=== PATIENT | male | born 1985 | race Caucasian/White ===

== ENCOUNTER 2020-08-17 10:20 | Emergency (ER) | payer OTHER, BC, SELFPAY ==
--- NOTE | ~2020-08-17 | CT_ITS ---
EXAMINATION: CT LUMBAR SPINE WITHOUT CONTRAST CLINICAL INFORMATION: Low back pain. COMPARISON: Lumbar spine radiographs 08/17/2020. TECHNIQUE: Director Of Learning images were obtained. CT acquisition of the lumbar spine was performed without contrast. Data was reformatted into multiplanar images at the acquisition workstation. This CT examination was performed using dose optimization techniques as appropriate, variously including the following: *Automated exposure control *Adjustment of mA and/or kV according to patient size (this includes techniques or standardized protocols for targeted exams where dose is matched to indication/reason for exam; i.e. extremities or head) *Use of iterative reconstruction technique DLP; 723 mGy-cm FINDINGS: There are nondisplaced bilateral L5 pars interarticularis defects. Slight grade 1 retrolisthesis of L4 on L5. Alignment is otherwise normal. Vertebral heights are preserved. No acute fracture. There is slight loss of intervertebral disc height at L5-S1. There is a slightly bulging disc at L5-S1. Annular contours are otherwise normal. Grossly no evidence of canal or neuroforaminal compromise. Limited visualization the abdominal anatomy reveals a 1.4 cm calculus within the gallbladder lumen. Psoas and paraspinal muscle groups are symmetric. CT/CT lumbar spine wo con IMPRESSION: There are nondisplaced bilateral L5 pars interarticularis defects and a slightly bulging disc at L5-S1. Otherwise unremarkable examination. Specifically no canal or neuroforaminal compromise. Limited visualization of the abdominal anatomy reveals a 1.4 cm calculus within the gallbladder.
--- NOTE | ~2020-08-17 | XR_ITS ---
EXAMINATION: XR LUMBOSACRAL SPINE CLINICAL INFORMATION: Low back pain COMPARISON: Outside radiographs lumbar spine 08/16/2020 ([place], [place] lumbar the [place]rer from yesterday. There is). TECHNIQUE: Three views of the lumbosacral spine. FINDINGS: There is normal lumbar segmentation with 5 nonrib-bearing lumbar vertebrae of normal height and normal lumbar lordosis. There is no lumbar vertebral compression, spondylolisthesis, disc narrowing, destructive process. There is likely L5 spondylolysis. The SI joints and visualized sacrum are unremarkable. Subtle ringlike density right upper quadrant may suggest gallstone, better appreciated on the outside exam 08/16/2020. XR/XR lumbar spine 2-3V IMPRESSION: 1. No lumbar vertebral compression, disc narrowing, destructive process. 2. Probable L5 spondylolysis. This could be further assessed with oblique views. 3. Question gallstone.
[2020-08-17 10:29] VITALS: BP 128/75; PULSE 68; RESP 6; TEMP 36.9; O2SAT 96; BMI 36.9
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
[2020-08-17 13:35] VITALS: BP 118/76; PULSE 71; RESP 16; TEMP 36.8; O2SAT 98
[2020-08-17] MEDS: predniSONE 20 MG TABLET 60 MG PO (13:45)
== END 2020-08-17 13:50 | disposition home or self-care (01) ==
PROVIDERS: Emergency Provider Emergency Medicine; PCP Internal Medicine
DX: Z04.1 Encounter for examination and observation following transport accident (principal); M54.16 Radiculopathy, lumbar region; M54.41 Lumbago with sciatica, right side
CPT/HCPCS: 72100; 72131; 99284

== ENCOUNTER 2023-04-17 15:25 | Outpatient (AMB) | payer BC, SELFPAY ==
[2023-04-17 15:38] VITALS: BP 138/88; PULSE 79; O2SAT 97; BMI 38.0
--- NOTE | 2023-04-17 15:38 | MHC.PC.OV ---
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/No Diagnosis Allergies pollen extracts Allergy (Verified 04/17/23 15:42) Itchy Eyes Medication List - Last Reconciled 04/17/23 by NARGIS Palomares bupropion HCl 300 mg PO DAILY sertraline 150 mg PO Tobacco use date assessed: 04/17/23 Dental Screening Dental Screen Date: 04/17/23 Did you have a dental visit in the last 12 months?: No Did you have a dental problem in the last 6 months where you did not have access to dental care?: No Was dental information given to patient?: No HPI HPI Comments History of Present Illness Details Patient is a 37-year-old male here to establish care and to have his annual physical exam. Will obtain medical records from his previous provider, he has not been seen by a provider in a couple of years. He has a past medical history significant for lower back pain, but states he is not having any issues with that right now. 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 He has agreed to send his medical records from his previous provider. Patient has a chief complaint today of gastric reflux, gas, and occasional abdominal distension. Patient states that he notices the symptoms most before bed. States that the discomfort is mostly on the left side of his abdomen. Also states that he has instances of loose stools. Patient has tried Pepto-Bismol which has given some relief. Denies blood in stools, black tarry stools, nausea, vomiting, diarrhea, chest pain, dizziness, numbness. [facility] Medical History (Updated 04/17/23 @ 16:18 by NARGIS Palomares) Lower back pain Depression Anxiety Social History Housing: Condominium Comment: Recovering ETOH abuse Patient Tobacco Use Status: Former Tobacco user e-Cigarette/Vaping Use: Never Used service: No Current occupational status: employed Cognitive needs: No Hearing needs: No Vision needs: No Questionnaire PHQ-9 Over the last 2 weeks, how often have you been bothered by any of the following problems? 1. Little interest or pleasure in doing things: several days 2. Feeling down, depressed, or hopeless: several days 3. Trouble falling or staying asleep, or sleeping too much: several days 4. Feeling tired or having little energy: several days 5. Poor appetite or overeating: several days 6. Feeling bad about yourself - or that you are a failure or have let yourself or your family down: several days 7. Trouble concentrating on things, such as reading the newspaper or watching television: several days 8. Moving or speaking so slowly that other people could have noticed. Or the opposite - being so fidgety or restless that you have been moving around a lot more than usual: not at all 9. Thoughts that you would be better off or of hurting yourself in some way: several days Total score: 8 Depression Screening Interpretation: Negative Depression Screening Done: Yes 65184 - PHQ-9 Billing: Yes Source: Developed by Drs. Bladimir Valentino, Georgia Weiner, Dae Gomez and colleagues, with an educational desire from [email or web address]. Thrive Questionnaire Date Thrive assessed: 04/17/23 I am a: Patient What is your living situation today?: I have a steady place to live Within the past 12 months, did the food you bought not last and you didn't have the money to get more?: Never true Within the past 12 months, did you worry whether your food would run out before you got money to buy more?: Never true Do you have trouble paying for medicines?: No Do you have trouble getting transportation to medical appointments?: No Do you have trouble paying your heating and electricity bill?: No Do you have trouble taking care of your child, family member or friend?: No Do you have trouble with day-to-day activities such as bathing, preparing meals, shopping, managing finances, etc.?: No Are you currently unemployed and looking for a job?: No Are you interested in more education?: No Please select the resources that you would like help with: None Currently or been in a relationship where the following occur: no concerns reported AUDIT C Alcohol Use Questionnaire (AUDIT-C) 1. How often do you have a drink containing alcohol?: Never 3. How often do you have six or more drinks on one occasion?: Never Total Score: 0 Score Reviewed/Action Taken: Yes INDIRA-7 AMB Questionnaire INDIRA-7 Date INDIRA - 7 assessed: 04/17/23 Feeling nervous, anxious, or on edge: 0 = Not at all Not being able to stop or control worryin = Several days Worrying too much about different things: 1 = Several days Trouble relaxin = Not at all Being so restless that it is hard to sit still: 0 = Not at all Becoming easily annoyed or irritable: 2 = More than half the days Feeling afraid as if something awful might happen: 0 = Not at all Total INDIRA-7 score (0-4 normal; 5-9 mild; 10-14 moderate; 15-21 severe): 4 Source: Developed by Drs. Bladimir Valentino, Georgia Weiner, Dae Gomez and colleagues, with an educational desire from [email or web address]. INDIRA-7 Assessment Billing INDIRA-7 Assessment Tool: INDIRA-7 Assessment 37813 Review of Systems Const Details: Constitutional : No Weight loss, No Fever, No Chills, No Fatigue, No Malaise ENT/Mouth : No sore throat, No Rhinorrhea Eyes: No Eye Pain, No Swelling, No Redness Cardiovascular : No Chest Pain, No SOB, No Dyspnea on Exertion, No Orthopnea, No Edema, No Palpitations Respiratory : No Cough, No Sputum, No Wheezing Gastrointestinal : No Nausea, No Vomiting, No Diarrhea, No Constipation, No abdominal Pain, No Hematochezia, No Melena. Admits Gas, loose stool, and reflux. Genitourinary : No Dysuria, No Urinary Frequency, No Hematuria, Musculoskeletal : No joint pain, No Myalgias, No Joint Swelling Skin : No Skin Lesions, No rash Neuro : No Weakness, No Numbness, No Dizziness, No Headache Psych : No Anxiety/Panic, No Depression Heme/Lymph: No Bruising, No Bleeding,No Lymphadenopathy Endocrine : No Polyuria, No Polydipsia All other systems reviewed and are negative Physical exam (Primary Care) Vital Signs: Last Vital Signs Pulse 79 04/17/23 15:38 BP 138/88 04/17/23 15:38 Pulse Ox 97 04/17/23 15:38 Oxygen Delivery Method Room Air 04/17/23 15:38 Care Plan Goal for BP management: Vital signs have been reviewed and are stable. BMI result Body Mass Index 38.0 BMI Assessment/Plan discussion: High Tobacco/Smoking Status: Tobacco use Status Tobacco use date assessed 04/17/23 04/17/23 15:40 Patient Tobacco Use Status Former Tobacco user 04/17/23 15:49 e-Cigarette/Vaping Use Never Used 04/17/23 15:47 PHQ-9: PHQ-9 Score PHQ-9: Total score 11 04/17/23 16:14 Depression Screening Interpretation: Negative Thrive Assessment: Date of Thrive Assessment Date Thrive assessed 04/17/23 04/17/23 16:14 Currently or been in a relationship where the following occur: no concerns reported Const Other: Appearance: Alert.? Oriented X3.? No acute distress.? Head: Normocephalic, atraumatic, no step-offs or deformities Eyes: Pupils equal, round and reactive to light.? ENT: Pharynx normal.?TM intact and pearly partida. Neck: Normal inspection.? Neck supple.?Full ROM CVS: Normal heart rate and rhythm.? Pulses normal.? Respiratory: No respiratory distress.? Breath sounds normal.? Abdomen: Soft and nontender.? Skin: Skin warm and dry.? Normal skin color.? Normal skin turgor.? Extremities: No lower extremity edema.? No calf ttp. 5/5 strength to bilateral upper and lower extremities Back: No midline tenderness, no C-spine tenderness, full range of motion, no CVA tenderness bilaterally Neuro: Oriented X 3.? No motor deficit.? No sensory deficit. CN 2-12 intact Results Reviewed Results Reviewed: Will call patient with lab results. Assessment and Plan Assessment & Plan (1) GERD (gastroesophageal reflux disease): Comment: Will prescribe omeprazole 20 mg to be taken the morning for the next 4 weeks. Patient has been instructed to take the medication even if symptoms resides. He has been educated on side effects of these medications. He has been educated on signs of worsening symptoms and when to return to the office or when to present to the emergency room. He has been educated on foods to avoid. In to avoid eating at least 3 hours before bedtime. Code(s): K21.9 - Gastro-esophageal reflux disease without esophagitis Qualifiers: Esophagitis presence: esophagitis presence not specified Qualified Code(s): K21.9 - Gastro-esophageal reflux disease without esophagitis Plan: Patient will follow-up in 3 months. Plan Take your medications as prescribed. If you were prescribed antibiotics today, it is important that you take your medication to their entirety, do not skip any doses, do not finish them early. Follow-up with your primary care provider this week. Return to the emergency department with new or worsening symptoms. Such as fevers, chills, chest pain, shortness of breath, nausea, vomiting, dizziness, headache, vision changes, lethargy In case of emergency call 911 Orders: Orders Comprehensive Met. Panel 04/17/23 Z91.89 - Other specified personal risk factors, not elsewhere classified Vitamin D 25-OH (D2 and D3) 04/17/23 Z13.21 - Encounter for screening for nutritional disorder UA CC w/rflx Micro + Cult 04/17/23 E86.0 - Dehydration Complete Blood Count Auto Diff 04/17/23 Z13.0 - Encounter for screening for diseases of the blood and blood-forming organs and certain disorders involving the immune mechanism Lipid Panel 04/17/23 E78.5 - Hyperlipidemia, unspecified Vitamin B6 04/17/23 Z13.21 - Encounter for screening for nutritional disorder Vitamin B12 04/17/23 Z13.21 - Encounter for screening for nutritional disorder TSH reflex Free T4 04/17/23 E03.9 - Hypothyroidism, unspecified Medications: New omeprazole 20 mg PO DAILY 30 caps 0RF Coding Level of Care Code New Pt Level 4 (08746) Diagnoses Gastroesophageal reflux disease, unspecified whether esophagitis present K21.9 Esophagitis presence: esophagitis presence not specified Additional Codes INDIRA-7 Assessment Billing - INDIRA-7 Assessment Tool: INDIRA-7 Assessment 07326 ([id number]) Time Spent (min) 45
== END 2023-04-17 16:12 | disposition home or self-care (01) ==
PROVIDERS: Visit Provider Nurse Practitioner Primary Care
DX: K21.9 Gastro-esophageal reflux disease without esophagitis (principal)
CPT/HCPCS: 99204

== ENCOUNTER 2023-05-05 08:03 | Outpatient (AMB) | payer BC, SELFPAY ==
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
--- NOTE | 2023-05-05 08:09 | AM.OFFWIN_ITS ---
Intake Vital Signs 05/05/23 08:16 Height 5 ft 11 in Weight 272 lb BMI 37.9 BP 128/74 Blood Pressure Location Lt brachial Position Sitting Pulse 86 Pulse Source Pulse Oximeter Temp 98.0 F Temp Source Oral Pulse Oximetry (%) 98 Intake Visit Reasons: EP LT eye (Scratch) Lobby Intake Note: pt is here for c.o left eye scratch on friday evening vision screening right eye 20/15 left eye 20/25 both eyes 20/25 Patient Tobacco Use Status: Former Tobacco user Allergies pollen extracts Allergy (Verified 05/05/23 08:17) Itchy Eyes Do you need a note to return to daycare/school/sports/work: Yes HPI HPI Comments History of Present Illness Details Nader presents to walk-in today for complaints foreign body sensation to the left eye. States he was outside on Friday and felt like something got his eye. He then rubbed the eye several times and noted afterwards discomfort and continued feeling of foreign body sensation. Has been using [id number] artificial tears. Denies pain with extraocular movements, changes in vision, headaches or purulent discharge He reports symptoms were approximately 80% worse yesterday and today is feeling a little better but he wanted to be evaluated. Patient drives for work and is requesting work note. [facility] Medical History (Updated 05/05/23 @ 08:55 by Sofiya Monge APRN, PRE SCHOOL MANAGER) Lower back pain Depression Anxiety Social History Housing: Condominium Comment: Recovering ETOH abuse Patient Tobacco Use Status: Former Tobacco user e-Cigarette/Vaping Use: Never Used service: No Current occupational status: employed Cognitive needs: No Hearing needs: No Vision needs: No Review of Systems Const All systems reviewed & are unremarkable except as noted in HPI and below Physical Exam Vital Signs: Last Vital Signs Temp 98.0 F 05/05/23 08:16 Pulse 86 05/05/23 08:16 BP 128/74 05/05/23 08:16 Pulse Ox 98 05/05/23 08:16 BMI result Body Mass Index 37.9 General: awake, alert, oriented. Answers questions appropriately. Fully engaged in examination. Skin: warm, dry, intact HEENT: Normocephalic. Hearing intact. left eye: + conjunctival injection. EOM intact Cardiac: External chest normal in appearance. Respiratory: No cough, audible wheezing or stridor. Abdomen: without gross distension. MS: No obvious swelling or deformities. Neurological: Oriented to person, place, time and situation. Thought process intact. Psychiatric: Appropriate mood and affect. Good judgment and insight. Office Procedures Fluorescein eye exam Details: No foreign body or corneal abrasion visualized Assessment & Plan Assessment & Plan (1) Foreign body sensation, left eye: Code(s): H57.8A2 - Foreign body sensation, left eye Plan Patient presents to the [facility] for left eye foreign body sensation Notable for conjunctival injection left eye, no foreign body or corneal abrasion visualized ABX drops, 1 drop to both eyes four times daily. Avoid touching, rubbing the eyes. Do not use same area of facecloth to clean both eyes. Wash hands often. All questions and concerns were answered during the visit. Patient agrees with the plan. Follow up with pcp or return to [facility] for any new or worsening symptoms. Orders: Orders AMB Fluorescein eye exam Today H57.8A2 - Foreign body sensation, left eye Medications: New polymyxin B sulf-trimethoprim 10,000 unit- 1 mg/mL while awake; do not exceed 6 doses in 24 hours 1 drp ophthalmic (eye) QID 5 days 10 mL 0RF Coding Level of Care Code Est Pt Level 4 (81680) Diagnoses Foreign body sensation, left eye H57.8A2
[2023-05-05 08:16] VITALS: BP 128/74; PULSE 86; TEMP 36.7; O2SAT 98; BMI 37.9
== END 2023-05-05 08:40 | disposition home or self-care (01) ==
PROVIDERS: PCP Nurse Practitioner Primary Care; Visit Provider Registered Nurse Emergency
DX: H57.8A2 Foreign body sensation, left eye (principal)
CPT/HCPCS: 99213

== ENCOUNTER 2023-06-09 09:03 | Outpatient (REF) | payer BC, SELFPAY ==
[2023-06-09 11:09] LABS: MANUAL DIFF FLAG NO
[2023-06-09 11:26] LABS: Basophils Percent Auto 0.3 % (0-2); Eosinophils Absolute Auto 0.2 X10*3/uL (0.0-0.4); Eosinophils Percent Auto 2.3 % (0-4); Hematocrit 44.6 % (42.0-52.0); Imm Gran Abs Auto 0.06 X10*3/uL (0.00-0.03); Imm Gran Pct Auto 0.7 % (0.0-0.4); Lymphocytes Absolute Auto 2.7 X10*3/uL (1.2-4.9); Lymphocytes Percent Auto 30.7 % (20-40); Mean Corpuscular HGB Conc 33.6 g/dl (31.0-36.0); Mean Corpuscular Hemoglobin 29.6 pg (27.0-33.0); Mean Corpuscular Volume 88.1 fL (80.0-98.0); Monocytes Absolute Auto 0.6 X10*3/uL (0.1-1.2); Monocytes Percent Auto 7.1 % (2-11); Neutrophils Absolute Auto 5.2 x10*3/uL (2.0-8.3); Neutrophils Percent Auto 58.9 % (45-73); Platelet Count 247 X10*3/uL (160-400); Red Blood Count 5.06 X10*6/uL (4.60-5.80); Red Cell Distribution Width 12.9 % (11.0-16.0); White Blood Count 8.8 X10*3/uL (4.8-10.8)
[2023-06-09 11:35] LABS: Appearance Urine Clear; Color Urine Yellow; Glucose Urine UA Negative (Negative); Leukocyte Esterase Urine Negative (Negative); Nitrite Urine Negative (Negative); Urine Blood Negative (Negative); Urine Ketones Negative (Negative); Urine Protein Negative (Neg-Trace)
[2023-06-09 12:26] LABS: Alanine Aminotransferase 48 U/L (0-40); Albumin Level 4.4 g/dL (3.5-5.0); Alkaline Phosphatase 71 U/L (39-117); Anion Gap 10 (12-20); Aspartate Amino Transferase 30 U/L (5-37); Bilirubin Total 0.4 mg/dL (0.0-1.0); Blood Urea Nitrogen 11 mg/dL (9-16); Calcium 9.6 mg/dL (8.4-10.2); Carbon Dioxide 27 mmol/L (22-29); Chloride 107 mmol/L (96-108); Cholesterol 208 mg/dL (<200); Estimated Glomerular Filt Rate > 60; Glucose Random 79 mg/dL (60-115); HDL Cholesterol 52 mg/dL (>40); LDL Cholesterol Calculated 145 mg/dL (<100); Potassium 4.3 mmol/L (3.3-5.1); Sodium 140 mmol/L (135-145); Total Protein 7.1 g/dL (6.5-8.0); Triglycerides 55 mg/dL (<150)
[2023-06-09 12:42] LABS: TSH reflex Free T4 0.54 uIU/mL (0.32-4.0)
[2023-06-09 12:48] LABS: Vitamin B12 874 pg/mL (200-900)
[2023-06-13 13:49] LABS: Vitamin B6 17.7 ng/mL (2.1-21.7)
[2023-06-13 15:24] LABS: Vitamin D 25-OH, D2 <4 ng/mL; Vitamin D 25-OH, D3 28 ng/mL; Vitamin D 25-OH, Total 28 ng/mL (30-100)
== END 2023-06-09 09:04 | disposition home or self-care (01) ==
LOC: HO.HMGCLDS 09:03
PROVIDERS: PCP Nurse Practitioner Primary Care; Visit Provider Nurse Practitioner Primary Care
DX: Z13.0 Encounter for screening for diseases of the blood and blood-forming organs and certain disorders involving the immune mechanism (principal); Z13.21 Encounter for screening for nutritional disorder; Z91.89 Other specified personal risk factors, not elsewhere classified; E03.9 Hypothyroidism, unspecified; E86.0 Dehydration; E78.5 Hyperlipidemia, unspecified
CPT/HCPCS: 36415; 80053; 80061; 81003; 82306; 82607; 84207; 84443; 85025

== ENCOUNTER 2023-07-17 15:14 | Outpatient (AMB) | payer BC, SELFPAY ==
--- NOTE | 2023-07-17 15:26 | A.OFFPC_ITS ---
Vital Signs 07/17/23 15:27 Height 5 ft 11 in Weight 269 lb 9 oz BMI 37.6 BP 126/84 Blood Pressure Location Rt brachial Position Sitting Pulse 77 Pulse Source Pulse Oximeter Pulse Oximetry (%) 99 Oxygen Delivery Method Room Air Intake Visit Reasons: 3 Month f/u Intake Note: Pt is here to follow up for his lab results Allergies pollen extracts Allergy (Verified 07/17/23 15:43) Itchy Eyes Medication List - Last Reconciled 07/17/23 by NARGIS Palomares multivitamin (Daily Multi-Vitamin tablet) 1 tab PO DAILY sertraline 150 mg PO Tobacco use date assessed: 07/17/23 Dental Screening Dental Screen Date: 07/17/23 Did you have a dental visit in the last 12 months?: No Did you have a dental problem in the last 6 months where you did not have access to dental care?: No Was dental information given to patient?: No HPI HPI Comments History of Present Illness Details Patient is a 38-year-old male in to discuss labs and have a follow-up with his GERD. Patient had been utilizing omeprazole with mild/moderate effect. He states that he had been under a significant amount of life stress, which has since improved, and believes that was contributing to his gastric reflux symptoms. He states that he has also altered his diet which has improved his GERD symptoms, though they have not completely diminished. Patient would like to continue with diet and exercise to see if he is able to eliminate reflux without medication. We also discussed patient's labs including low vitamin D3, and hyperlipidemia. Based on 10 year ASCVD patient is not indicated for statin therapy at this time. Patient believes he can improve with diet and exercise. [facility] Medical History (Updated 07/17/23 @ 16:16 by NARGIS Palomares) Lower back pain Depression Anxiety Social History Housing: Condominium Comment: Recovering ETOH abuse Patient Tobacco Use Status: Former Tobacco user e-Cigarette/Vaping Use: Never Used service: No Current occupational status: employed Cognitive needs: No Hearing needs: No Vision needs: No Questionnaire PHQ-9 Over the last 2 weeks, how often have you been bothered by any of the following problems? 39018 - PHQ-9 Billing: Patient declined-do not bill Source: Developed by Drs. Bladimir Valentino, Georgia Weiner, Dae Gomez and colleagues, with an educational desire from [employer]. Thrive Questionnaire Date Thrive assessed: 04/17/23 INDIRA-7 AMB Questionnaire INDIRA-7 Date INDIRA - 7 assessed: 04/17/23 Source: Developed by Drs. Bladimir Valentino, Georgia Weiner, Dae Gomez and colleagues, with an educational desire from [employer]. INDIRA-7 Assessment Billing INDIRA-7 Assessment Tool: INDIRA-7 Assessment 43542 Review of Systems Const Details: Constitutional : No Weight loss, No Fever, No Chills, No Fatigue, No Malaise ENT/Mouth : No sore throat, No Rhinorrhea Eyes: No Eye Pain, No Swelling, No Redness Cardiovascular : No Chest Pain, No SOB, No Dyspnea on Exertion, No Orthopnea, No Edema, No Palpitations Respiratory : No Cough, No Sputum, No Wheezing Gastrointestinal : No Nausea, No Vomiting, No Diarrhea, No Constipation, No abdominal Pain, No Hematochezia, No Melena, Admits minimal reflux. Genitourinary : No Dysuria, No Urinary Frequency, No Hematuria, Musculoskeletal : No joint pain, No Myalgias, No Joint Swelling Skin : No Skin Lesions, No rash Neuro : No Weakness, No Numbness, No Dizziness, No Headache Psych : No Anxiety/Panic, No Depression All other systems reviewed and are negative Physical exam (Primary Care) Vital Signs: Last Vital Signs Pulse 77 07/17/23 15:27 BP 126/84 07/17/23 15:27 Pulse Ox 99 07/17/23 15:27 Oxygen Delivery Method Room Air 07/17/23 15:27 Care Plan Goal for BP management: Vital signs reviewed stable BMI result Body Mass Index 37.6 Tobacco/Smoking Status: Tobacco use Status Tobacco use date assessed 07/17/23 07/17/23 15:34 Patient Tobacco Use Status Former Tobacco user 07/17/23 15:27 e-Cigarette/Vaping Use Never Used 07/17/23 15:27 Thrive Assessment: Date of Thrive Assessment Date Thrive assessed 04/17/23 07/17/23 15:27 Const General: cooperative and no acute distress Nutritional Appearance: overweight Limitations: no limitations Chest Chest palpation & inspection: normal inspection of the chest Resp Auscultation: clear to auscultation bilaterally Cardio Rate: regular rate Rhythm: regular rhythm Heart sounds: S1 normal heart sound present and S2 normal heart sound present GI Inspection: Yes normal to inspection Percussion: Yes normal to percussion Auscultation: normal bowel sounds Results Reviewed Results Reviewed: Sodium 140 135-145 mmol/L Potassium 4.3 3.3-5.1 mmol/L CL 107 96-108 mmol/L CO2 27 22-29 mmol/L Gap 10 L 12-20 BUN 11 9-16 mg/dL Creat 0.99 0.5-1.4 mg/dL EGFR > 60 NOTE: For -[place]ian individuals, multiply the result by 1.210. Chronic Kidney Disease: Estimated GFR < 60 mL/min/1.73m2 Severe Kidney Disease: Estimated GFR < 15 mL/min/1.73m2 Glucose, Random 79 60-115 mg/dL CA 9.6 8.4-10.2 mg/dL Total Bili 0.4 0.0-1.0 mg/dL AST (GOT) 30 5-37 U/L ALT (GPT) 48 H 0-40 U/L Protein, Total 7.1 6.5-8.0 g/dL Alb 4.4 3.5-5.0 g/dL Triglyceride 55 <150 mg/dL Desirable Triglyceride: less than 150 mg/dL Borderline High Triglyceride 150-199 mg/dL High Triglyceride: 200-499 mg/dL Very High Triglyceride: greater than or equal to 5OO mg/dL Cholesterol 208 H <200 mg/dL Desirable Cholesterol: less than 200 mg/dL Borderline High Cholesterol: 200-239 mg/dL High Cholesterol: greater than 239 mg/dL LDL Calculated 145 H <100 mg/dL Desirable LDL: less than 100 mg/dL Near Optimal/Above Optimal LDL: 110-129 mg/dL Borderline High LDL: 130-159 mg/dL High LDL: 160-189 mg/dL Very High LDL: greater than or equal to 190 mg/dL HDL 52 >40 mg/dL Desirable HDL: greater than 40 mg/dL Note: This HDL assay may give artificially low results in patients with liver disease. Alk Phos 71 39-117 U/L TSH 0.54 0.32-4.0 uIU/mL Assessment and Plan Assessment & Plan (1) GERD (gastroesophageal reflux disease): Comment: Patient will continue to avoid food 3 hours prior to bedtime. Continue to sleep with has the bed elevated. No longer taking omeprazole at this time. Will utilize exercise and improved diet for symptom control. Code(s): K21.9 - Gastro-esophageal reflux disease without esophagitis Qualifiers: Esophagitis presence: esophagitis presence not specified Qualified Code(s): K21.9 - Gastro-esophageal reflux disease without esophagitis Plan: Take your medications as prescribed. If you were prescribed antibiotics today, it is important that you take your medication to their entirety, do not skip any doses, do not finish them early. Follow-up with your primary care provider this week. Return to the emergency department with new or worsening symptoms. Such as fevers, chills, chest pain, shortness of breath, nausea, vomiting, dizziness, headache, vision changes, lethargy In case of emergency call 911 Plan Follow-up with labs in 3 month Orders: Orders PSA,Total (Free>4and<10) 3 Months Z12.5 - Encounter for screening for malignant neoplasm of prostate Lipid Panel 3 Months Z13.220 - Encounter for screening for lipoid disorders Comprehensive Met. Panel 3 Months Z91.89 - Other specified personal risk factors, not elsewhere classified Complete Blood Count Auto Diff 3 Months Z13.0 - Encounter for screening for diseases of the blood and blood-forming organs and certain disorders involving the immune mechanism Vitamin D 25-OH (D2 and D3) 3 Months Z13.21 - Encounter for screening for nutritional disorder Coding Level of Care Code Est Pt Level 3 (97069) Diagnoses Gastroesophageal reflux disease, unspecified whether esophagitis present K21.9 Esophagitis presence: esophagitis presence not specified Additional Codes INDIRA-7 Assessment Billing - INDIRA-7 Assessment Tool: INDIRA-7 Assessment 50817 ([id number]) Time Spent (min) 22
[2023-07-17 15:27] VITALS: BP 126/84; PULSE 77; O2SAT 99; BMI 37.6
== END 2023-07-17 16:08 | disposition home or self-care (01) ==
PROVIDERS: Visit Provider Nurse Practitioner Primary Care
DX: K21.9 Gastro-esophageal reflux disease without esophagitis (principal)
CPT/HCPCS: 99213

== ENCOUNTER 2024-03-10 16:32 | Emergency (ER) | payer OTHER, SELFPAY ==
--- NOTE | ~2024-03-10 | XR_ITS ---
EXAMINATION: XR FINGER, RIGHT CLINICAL INFORMATION: r/o FB in lac COMPARISON: None available. TECHNIQUE: Three views of the right small finger. FINDINGS: The bones and soft tissues are normal. No fracture. Alignment is anatomic. Joint spaces are maintained. No radiopaque foreign object is visualized. XR/XR finger RT min 2V IMPRESSION: No radiopaque foreign object is visualized. Electronically signed by: Varsha Mcwilliams MD 03/10/2024 05:49 PM EST
[2024-03-10 16:38] VITALS: BP 123/60; PULSE 73; RESP 18; TEMP 36.9; O2SAT 98; BMI 36.2
--- NOTE | 2024-03-10 16:41 | ED.WOUNDLAC ---
HPI - Wound/Laceration General Chief Complaint: Wound/Laceration Stated Complaint: ?Stitches needed on right hand Time Seen by Provider: 03/10/24 18:36 Source: patient Mode of arrival: ambulatory Limitations: no limitations History of Present Illness ED Provider: KOBY HOWELL narrative: 38 yo male with PMH of GERD, UTD on tdap, R hand dominant was washing a glass and the glass had a crack in it he suffered a laceration at the base of the pinky finger. No other injuries no numbness or weakness of the finger. Onset (ago): minute(s) (GLOBAL CMO) Extremity Location: left: hand (web space of pinky finger) Place: home Patient tetanus UTD: Yes Context: accidental Associated symptoms: none Treatments prior to arrival: bandage Related Data Home Medications ?Medication ?Instructions ?Recorded ?Confirmed sertraline 100 mg tablet 150 mg PO 04/17/23 07/17/23 multivitamin (Daily Multi-Vitamin 1 tab PO DAILY 07/17/23 07/17/23 tablet) Allergies Allergy/AdvReac Type Severity Reaction Status Date / Time pollen extracts Allergy Itchy Eyes Verified 03/10/24 16:40 Review of Systems Review of Systems: Constitutional : No Fever, No Chills, Cardiovascular : No Chest Pain, No SOB Respiratory : No Dyspnea Gastrointestinal : No abdominal pain Musculoskeletal : No Joint Swelling Skin : No rash, positive skin laceration Neuro : No Weakness, No Numbness all other systems reviewed and are negative [facility] Past Medical History Attestation statement: The following information was validated with the patient. Source: old records reviewed Medical History Lower back pain Depression Anxiety Social History Social History Housing: Condominium Comment: Recovering ETOH abuse Patient Tobacco Use Status: Former Tobacco user e-Cigarette/Vaping Use: Never Used Advance Directives: No Advance Directives Information Provided: No Do you have a plan to hurt others: No Plan service: No Current occupational status: employed Cognitive needs: No Hearing needs: No Vision needs: No Physical Exam Vital Signs: Vital Signs: Last Vital Signs Temp 98.3 F 03/10/24 18:45 Pulse 65 03/10/24 18:45 Resp 16 03/10/24 18:45 BP 126/67 03/10/24 18:45 Pulse Ox 99 03/10/24 18:45 O2 Del Method Room Air 03/10/24 18:45 BMI result Body Mass Index 36.2 Appearance: Alert. Oriented X3. No acute distress. Eyes: Pupils equal, round and reactive to light. ENT: Pharynx normal. Neck: Normal inspection. CVS: Normal heart rate and rhythm. Pulses normal. Respiratory: No respiratory distress. Abdomen: atraumatic Skin: Skin warm and dry. Normal skin color. Normal skin turgor. Extremities: No lower extremity edema. R hand pinkie finger at the base is 1.5cm superficial laceration - SILt intact both sides, BCR in digit, bleeding controlled, FDP and FSP intact, normal extension Neuro: Oriented X 3. No motor deficit. No sensory deficit. Course Course Course Narrative: This is a Rapid Medical Exam performed in triage by Carrie Florez PA-C. Full HPI, ROS and PE to be performed by primary ED provider. 38 yo M presenting to the ED c/o laceration to 5th digit s/p washing glass that cracked. Tetanus he believes is up-to-date. Unknown retained foreign body PE: 1 cm laceration noted to right hand 5th digit base. Bleeding controlled Plan: Suture repair, x-ray to rule out foreign body Reevaluation(s) Reevaluation #1: suture performed by [facility] Medications Administered Discontinued Medications Generic Name Dose Route Start Last Admin Trade Name Freq PRN Reason Stop Dose Admin Lidocaine HCl 5 ml 03/10/24 18:53 03/10/24 19:42 Lidocaine Hcl 1 % Mpf 5 Ml Vial SUBCUT 03/10/24 18:54 5 ml ONCE ONE Administration Medical Decision Making Medical Decision Making [facility] Narrative: 38 yo male with PMH of GERD, UTD on tdap here with laceration to R pinky web space - NV intact, SILT intact, extensor testing and FDP and FSP intact on exam. Will xray for FB and suture laceration. Differential Diagnosis Differential Diagnoses: The differential diagnosis associated with the presentation includes laceration Independent Interpretation I performed an independent interpretation of an: Plain X-Ray (no FB) Radiology Impression Discussion of test interpretation with radiology: I have reviewed the radiologist's reading. Procedures Laceration Laceration 1: Site: hand (pinky finger) Side (If applicable): right Size (cm): 1.5 Description: linear Depth: simple, single layer Local Anesthetic: lidocaine 1% Amount of anesthesia used (mL): 5 Pre-repair: wound explored, irrigated extensively and deep structures intact Skin layer closed with: nylon Size (cm): 5-0 Number of sutures: 3 Technique: simple, interrupted Discharge Plan Discharge Clinical Impression: Laceration Patient Disposition: Home, Self-Care Instructions: Finger Laceration (ED) Additional Instructions: stitches out in 7 days monitor for redness, swelling, fevers, yellow drainage, avoid getting wet as much as possible but especially for first 48 hours. Keep clean and covered after day 3 can let it be out in the open as long as your hands are not getting soiled you can shower but no other water exposure like pool, hot tub, dishes - wait for 48 hours at least the more dry it is the better it will heal. Prescriptions: No Action sertraline 100 mg tablet 150 mg PO multivitamin [Daily Multi-Vitamin] Tablet 1 tab PO DAILY Stand Alone Forms: Work/School Release Print Language: Syriac
[2024-03-10 18:45] VITALS: BP 126/67; PULSE 65; RESP 16; TEMP 36.8; O2SAT 99
[2024-03-10] MEDS: Lidocaine HCl 1 % MPF 5 ML VIAL SUBCUT (19:42)
[2024-03-10 20:12] VITALS: BP 126/67; PULSE 65; RESP 16; TEMP 36.8; O2SAT 99
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
--- OUTSIDE RECORDS SUMMARY | 2024-03-16 21:05 | XMS_ITS ---
Author Organization [facility] Address [address] [place] [address] Care Team Providers Care Supervisor Public Message Service Name Role Phone DEMARCO DOWNEY Primary Care Provider Demarco Downey Unavailable [phone] REASON FOR VISIT RTW Note Needs Correction Encounters Encounter Location Date Provider Diagnosis [facility] [address] [place] [address] 10/17/2022 DEMARCO DOWNEY Plan Of Treatment No Information Progress Notes * Haroon ROSSDOB:1985 ( 37 yo M)Acc No.[id number]:10/17/2022 Patient:?Cody Haroon :1985???Age:37 Y???Sex:Male Address: [address] , [place], [address] * true * Date:? Generated for Printi cookie/Luisag/eTransmitting on:?03/16/2024 09:05 PM EST
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
== END 2024-03-10 20:12 | disposition home or self-care (01) ==
PROVIDERS: Emergency Provider Emergency Medicine
DX: S61.216A Laceration without foreign body of right little finger without damage to nail, initial encounter (principal); W25.XXXA Contact with sharp glass, initial encounter; Y93.G1 Activity, food preparation and clean up; Y92.9 Unspecified place or not applicable; Y99.9 Unspecified external cause status
CPT/HCPCS: 12001; 73140; 99283; 99284; J2003

== ENCOUNTER 2024-03-18 14:24 | Emergency (ER) | payer OTHER, SELFPAY ==
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
--- OUTSIDE RECORDS SUMMARY | 2024-03-18 14:26 | XMS_ITS ---
Author Organization [facility] Address [address] [place] [address] Care Team Providers Care Library Assistant Name Role Phone EDMARCO DOWNEY Primary Care Provider Demarco Downey Unavailable [phone] REASON FOR VISIT RTW Note Needs Correction Encounters Encounter Location Date Provider Diagnosis [facility] [address] [place] [address] 10/17/2022 DEMARCO DOWNEY Plan Of Treatment No Information Progress Notes * Haroon ROSSDOB:1985 ( 37 yo M)Acc No.[id number]:10/17/2022 Patient:?Cody Haroon :1985???Age:37 Y???Sex:Male Address: [address] , [place], [address] * true * Date:? Generated for Printi cookie/Luisag/eTransmitting on:?03/18/2024 02:26 PM EST
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
--- OUTSIDE RECORDS SUMMARY | 2024-03-18 14:27 | XMS_ITS ---
Author Organization [facility] Address [address] [place] [address] Care Team Providers Care Asphalt Still Operator Name Role Phone DEMARCO DOWNEY Primary Care Provider [phone] Demarco Downey Unavailable [phone] Allergies No Known Allergies REASON FOR VISIT [...] Problem Status W/U Status Risk Notes Problem 89687772 Other chronic pain (G89.29) Active confirmed Vital Signs Temperature 98.5 degrees Fahrenheit 10/17/19 23 Blood pressure systolic 130 mm Hg 10/17/19 23 Blood pressure diastolic 82 mm Hg 023 Heart Rate 75 /min 10/16/2022 Height 70.0786 in 10/16/2022 Weight 272 lbs 10/16/2022 BMI 38.94 kg/m2 10/16/2022 Oximetry 98 % 10/16/2022 Encounters Encounter Location Date Provider Diagnosis [address] [place] [address] 10/16/2022 DEMARCO DOWNEY Low back pain, unspecified [...] * Haroon ROSSDOB:1985 ( 37 yo M)Acc No.[id number]:10/16/2022 Progress Notes Patient:?Haroon Ross Provider:?Demarco Downey MD :1985???Age:37 Y???Sex:Male Masoud e:10/16/2022 Address: [address] , [facility] Subjective: * Chief Complaints: * ???Urgent Visit: [...] guerrero and moustache. Seeing yung Saucedo in [place] in person once a month. Had 8 sessions free Now will cost $25 a visit. Through work . On sertraline and bupropion. Went to see his grandmother James with father Bolivar Marie went with him. 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 No summer plans as no [...] and it lasts 2 weeks. [place] in [place] otherwise he would grow it. Was seeing Noy with [facility] for 2 visits,Telehealth. 10 minute sessions 2 weeks apart. He founf Sheryl Styles(a friends referred) in [place] ([employer] ) Seeing her now monthly [...] 2 yrs on . ?Still working at [employer] for 6 years Off on weekends. Smokes MJ No tobacco. Went to [employer] [facility] for 4 days a month ago. Having a Juni and [employer] at [employer] next week. ?12/14/20 Seen 4 weeks ago [...] he went to see Jovita Bernardo physician imaging assistant to Dr. Moseley at [facility] on 08/29/2020. She found he [...] Months * Billing Information: * Visit Code:? 04279 Office Visit, Est Pt., Level 4. * Procedure Codes:? * Sign off status: Completed true * Provider:?Demarco Downey MD Date:?2022 Generated for Tobiasi cookie/Odell/eTransmitting on:?03/18/2024 02:26 PM EST History and Physical Notes * [...] 300mg and sertraline 150 by therapist Sheryl [facility] abhilash. Still sober, alcohol free. Has [...] 300mg and sertraline 150 by therapist Sheryl [facility]ash. Still sober, alcohol free. Has [...] guerrero and moustache. Seeing yung Saucedo in [place] in person once a month. Had 8 sessions free Now will cost $25 a visit. Through work . On sertraline and bupropion. Went to see his grandmother James with father Bolivar Marie went with him. 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 No summer plans as no [...] would grow it. Was seeing Noy with [employer] [facility] for 2 visits,Telehealth. 10 minute sessions 2 weeks apart. He founf Sheryl Styles(a friends referred) in [place] ([employer] ) Seeing her now monthly [...] 2 yrs on . Still working at [employer] for 6 years Off on weekends. Smokes MJ No tobacco. Went to [employer] [facility] for 4 days a month ago. Having a Juni and [employer] at [employer] next week. 12/14/20 Seen 4 weeks ago [...] he went to see Jovita Bernardo physician imaging assistant to Dr. Moseley at [facility] on 08/29/2020. She found he [...] General Examination GENERAL APPEARANCE: in no ac [place] distress, well developed, well nourished HEAD: normocephalic, atrau matic HEART: no murmurs, regular rate and rhythm, S1, S2 normal LUNGS: clear to auscultatio n bilaterally EXTREMITIES: no clubbing, cyanosi s, or edema PSYCH: alert, oriented , go od eye contact , normal , thought process logical, goal directed
[2024-03-18 14:31] VITALS: BP 113/68; PULSE 78; RESP 16; TEMP 36.6; O2SAT 99; BMI 37.7
--- NOTE | 2024-03-18 14:41 | ED_ITS ---
HPI - General Adult General Chief complaint: General Medical Stated complaint: suture removal Time Seen by Provider: 03/18/24 14:35 Source: patient Limitations: no limitations History of Present Illness ED Provider: Stefani theodore PA-C HPI narrative: 38-year-old male presents with need for suture removal. Patient sustained a laceration to the right pinky finger on March 10. Related Data Home Medications ?Medication ?Instructions ?Recorded ?Confirmed sertraline 100 mg tablet 150 mg PO 04/17/23 07/17/23 multivitamin (Daily Multi-Vitamin 1 tab PO DAILY 07/17/23 07/17/23 tablet) Allergies Allergy/AdvReac Type Severity Reaction Status Date / Time pollen extracts Allergy Itchy Eyes Verified 03/18/24 14:35 Review of Systems Review of Systems: Yes all other systems are reviewed and are negative Constitutional: Constitutional: Denies fatigue and Denies fever(s) Endocrine: Endocrine: Denies fatigue PMFSH Past Medical History Attestation statement: The following information was validated with the patient. Medical History Lower back pain Depression Anxiety Social History Social History Housing: Condominium Comment: Recovering ETOH abuse Patient Tobacco Use Status: Former Tobacco user e-Cigarette/Vaping Use: Never Used service: No Current occupational status: employed Cognitive needs: No Hearing needs: No Vision needs: No Physical Exam ED Vital Signs: Vital Signs - 24 hr 03/18/24 14:31 Temperature 97.8 F Pulse Rate 78 Respiratory Rate 16 Blood Pressure 113/68 Pulse Oximetry 99 Oxygen Delivery Method Room Air BMI result Body Mass Index 37.7 Const Other: Alert Resp Effort & Inspection: normal respiratory effort Cardio Other: Normal peripheral perfusion Skin Other: Warm dry no rash Extrem Other: 3 sutures were removed from the webspace of the right pinky finger Psych Other: Cooperative Medical Decision Making Medical Decision Making MDM Narrative: 38-year-old male presents with need for suture removal. Patient sustained a laceration to the right pinky finger on March 10. No relevant chronic issues The patient is here for suture removal, 3 were removed, there was no evidence of infection. Discharge Plan Discharge Clinical Impression: Visit for suture removal Patient Disposition: Home, Self-Care Additional Instructions: 3 sutures were removed today. Watch for signs of infection which would include redness, swelling, discharge from the wound or fever. Follow up with your primary care provider as needed. Prescriptions: No Action sertraline 100 mg tablet 150 mg PO multivitamin [Daily Multi-Vitamin] Tablet 1 tab PO DAILY Print Language: Ukrainian
[2024-03-18 14:51] VITALS: BP 113/68; PULSE 78; RESP 16; TEMP 36.6; O2SAT 99
== END 2024-03-18 14:51 | disposition home or self-care (01) ==
PROVIDERS: Emergency Provider Student in an Organized Health Care Education/Training Program
DX: Z48.02 Encounter for removal of sutures (principal); S61.216D Laceration without foreign body of right little finger without damage to nail, subsequent encounter; W45.8XXD Other foreign body or object entering through skin, subsequent encounter
CPT/HCPCS: 99282

== ENCOUNTER 2024-10-21 15:01 | Outpatient (AMB) | payer MEDICAID, SELFPAY ==
[2024-10-21 15:13] VITALS: BP 128/80; PULSE 88; O2SAT 98; BMI 38.7
--- NOTE | 2024-10-21 15:13 | A.OFFPC_ITS ---
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 Mcintosh with concerns of gastroesophageal reflux disease, depression, anxiety, and chronic back pain. The patient reports a history of gastroesophageal reflux disease (GERD), experiencing symptoms of acid reflux. He has been managing this condition with lifestyle modifications and [id number] medications. The patient has a history of major depressive disorder and generalized anxiety disorder. He was previously on sertraline and bupropion, which initially helped but later became ineffective. He stopped medication to assess his condition without pharmacological intervention. The patient reports chronic back pain, primarily affecting the mid to lower back, with occasional numbness extending to the legs. 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 Previous imaging revealed mild arthritis and spondylolysis at the L5 vertebra. He has been diagnosed with irritable bowel syndrome (IBS) and manages symptoms with dietary adjustments and supplements. He experiences intermittent diarrhea, particularly after consuming junk food. He has been applying for disability and the doctor at the facility that examined him thought that he might have ADHD. He also has a history of epilepsy, with no recent seizures or need for medication. He was diagnosed at an early age. Reports that the neurologist that he was seeing in [place] told him that he will not need to be restricted from driving because his seizure activities are very subtle and he is still able to drive and live a normal life. multiple joint pain, bilateral hips, knees and toes. The pain comes with a burning sensation He reports dry eyes, which he attributes to his current work environment involving exposure to chemicals. PFSH Medical History (Updated 10/21/24 @ 17:51 by LINDSAY Brar) Seizure Tinnitus of both ears Anxiety and depression Back pain IBS (irritable bowel syndrome) Lower back pain Depression Anxiety Social History Housing: Condominium Comment: Recovering ETOH abuse Patient Tobacco Use Status: Former Tobacco user e-Cigarette/Vaping Use: Never Used service: No Current occupational status: employed Cognitive needs: No Hearing needs: No Vision needs: No Questionnaire PHQ-9 Over the last 2 weeks, how often have you been bothered by any of the following problems? 1. Little interest or pleasure in doing things: several days 2. Feeling down, depressed, or hopeless: several days 3. Trouble falling or staying asleep, or sleeping too much: not at all 4. Feeling tired or having little energy: several days 5. Poor appetite or overeating: several days 6. Feeling bad about yourself - or that you are a failure or have let yourself or your family down: not at all 7. Trouble concentrating on things, such as reading the newspaper or watching television: several days 8. Moving or speaking so slowly that other people could have noticed. Or the opposite - being so fidgety or restless that you have been moving around a lot more than usual: not at all 9. Thoughts that you would be better off or of hurting yourself in some way: not at all Total score: 5 Source: Developed by Drs. Bladimir Valentino, Georgia Weiner, Dae Gomez and colleagues, with an educational desire from [employer]. Thrive Questionnaire Date Thrive assessed: 10/21/24 I am a: Patient What is your living situation today?: I have a steady place to live Within the past 12 months, did the food you bought not last and you didn't have the money to get more?: Never true Within the past 12 months, did you worry whether your food would run out before you got money to buy more?: Never true Do you have trouble paying for medicines?: No Do you have trouble getting transportation to medical appointments?: No Do you have trouble paying your heating and electricity bill?: No Do you have trouble taking care of your child, family member or friend?: No Do you have trouble with day-to-day activities such as bathing, preparing meals, shopping, managing finances, etc.?: No Are you currently unemployed and looking for a job?: No Are you interested in more education?: No Please select the resources that you would like help with: None Currently or been in a relationship where the following occur: No concerns reported THRIVE Score: 0 AUDIT C Alcohol Use Questionnaire (AUDIT-C) 1. How often do you have a drink containing alcohol?: Monthly or less 2. How many drinks containing alcohol do you have on a typical day when you are drinking?: 1 or 2 3. How often do you have six or more drinks on one occasion?: Never Total Score: 1 INDIRA-7 AMB Questionnaire INDIRA-7 Date INDIRA - 7 assessed: 10/21/24 Feeling nervous, anxious, or on edge: 1 = Several days Not being able to stop or control worryin = Several days Worrying too much about different things: 1 = Several days Trouble relaxin = Several days Being so restless that it is hard to sit still: 0 = Not at all Becoming easily annoyed or irritable: 1 = Several days Feeling afraid as if something awful might happen: 1 = Several days Total INDIRA-7 score (0-4 normal; 5-9 mild; 10-14 moderate; 15-21 severe): 6 Source: Developed by Drs. Bladimir Valentino, Georgia Weiner, Dae Gomez and colleagues, with an educational desire from [employer]. Review of Systems Const Denies headache(s) Eyes Reports dry eyes, Denies irritation and Denies loss of vision ENT Denies vertigo, Denies dizziness, Denies headache(s) and Denies sore throat Card Denies chest pain, Denies leg edema and Denies lightheadedness Resp Denies cough, Denies hemoptysis and Denies wheezing GI Denies abdominal pain, Denies melena, Denies constipation, Reports diarrhea (on and off, hx of IBS) and Denies vomiting Denies dysuria, Denies urinary frequency and Denies urinary urgency Musc Reports back pain (mid-back and lower back pain), Reports arthralgias (bilateral hips and knees), Denies joint swelling, Reports numbness (down from mid back to lower back.) and Denies tingling Neuro Denies Abnormal speech present, Denies behavioral changes, Denies vertigo, Denies dizziness, Denies headache(s), Denies loss of vision, Denies memory loss, Reports numbness (down from mid back to lower back.), Denies tingling and Reports other (history of epilepsy) Psych Reports anxiety, Denies behavioral changes, Reports depression, Denies memory loss and Reports panic attacks Cl/Lymph Denies easy bleeding and Denies easy bruising Aller/Immun Denies wheezing Physical exam (Primary Care) Vital Signs: Last Vital Signs Pulse 88 10/21/24 15:13 BP 128/80 10/21/24 15:13 Pulse Ox 98 10/21/24 15:13 Oxygen Delivery Method Room Air 10/21/24 15:13 BMI result Body Mass Index 38.7 Tobacco/Smoking Status: Tobacco use Status Tobacco use date assessed 10/21/24 10/21/24 15:20 Patient Tobacco Use Status Former Tobacco user 10/21/24 15:20 e-Cigarette/Vaping Use Never Used 10/21/24 15:20 PHQ-9: PHQ-9 Score PHQ-9: Total score 5 10/21/24 15:33 Thrive Assessment: Date of Thrive Assessment Date Thrive assessed 10/21/24 10/21/24 15:20 Currently or been in a relationship where the following occur: No concerns reported Const General: healthy appearing, no acute distress, alert and awake Nutritional Appearance: well nourished Orientation/consciousness: oriented to person, oriented to place and oriented to time HENMT Ears: TM's normal bilaterally General nose exam: Normal nasal mucous membranes and turbinates present Eyes Conjunctivae: conjunctivae normal Sclerae: sclerae normal Pupils: Equal, round and reactive pupils present Neck Neck: Yes no lymphadenopathy and Yes no JVD Thyroid: Thyroid normal Carotids: no bruits Resp Effort & Inspection: normal respiratory effort and not tachypneic Auscultation: no crackles, no rales, no rhonchi and no wheezes Cardio Rate: regular rate Rhythm: regular rhythm Heart sounds: no murmurs and normal S1 and S2 GI Palpation (GI): Soft to palpation, nontender, no hepatomegaly and no splenomegaly Auscultation: normal bowel sounds Skin General skin exam: no rashes or lesions noted and dry skin Neuro General: oriented to person, oriented to place and oriented to time Cranial nerves: Yes Equal, round and reactive pupils present Speech: No Abnormal speech present Gait exam (Neuro): Normal gait present Motor exam (neuro): no tremor noted Extrem Right upper extremity: full ROM Left upper extremity: full ROM Right lower extremity: full ROM; no edema Left lower extremity: full ROM; no edema Psych Mental Status: mental status grossly normal Speech and movement: Normal speech and movement present Affect: normal affect Attitude: cooperative Thought process: Normal thought process present Coding Level of Care Code Est Pt Level 4 (82298) Diagnoses Anxiety and depression F41.9; F32.A Irritable bowel syndrome, unspecified type K58.9 Irritable bowel syndrome type: unspecified Tinnitus of both ears H93.13 Gastroesophageal reflux disease, unspecified whether esophagitis present K21.9 Esophagitis presence: esophagitis presence not specified Chronic midline back pain, unspecified back location M54.9; G89.29 Back pain location: back pain in unspecified location Chronicity: chronic Back pain laterality: midline Seizure R56.9 Pain in both knees, unspecified chronicity M25.561; M25.562 Chronicity: unspecified Time Spent (min) 43 Assessment & Plan Assessment & Plan (1) Anxiety and depression: Code(s): F41.9 - Anxiety disorder, unspecified; F32.A - Depression, unspecified Category: Medical Plan: The patient reports that the was on sertraline and wellbutrin. Reports that he loss his provider and he to deal with his mental health without medication. He is requesting to be started back on medications. Sertraline 50mg daily was ordered. The patient that is mentioned having on and off panic attacks when his anxiety increases intermittently. Hydroxyzine 50 mg b.i.d. p.r.n. was also ordered, will have the patient follow in 6 weeks. Denies si/hi. (2) IBS (irritable bowel syndrome): Code(s): K58.9 - Irritable bowel syndrome, unspecified Category: Medical Qualifiers: Irritable bowel syndrome type: unspecified Qualified Code(s): K58.9 - Irritable bowel syndrome, unspecified Plan: reports that he has been managing is IBS with dietary modifications. Intermittently, he gets diarrhea if he eat junk foods for couple days. Encouraged usage of the FODMAP diet (3) Tinnitus of both ears: Code(s): H93.13 - Tinnitus, bilateral Category: Medical Plan: Reports that he has ringing in his ears for a very long time, but never sought care for this. Will do a hearing test to further evaluate (4) GERD (gastroesophageal reflux disease): Comment: Patient will continue to avoid food 3 hours prior to bedtime. Continue to sleep with has the bed elevated. No longer taking omeprazole at this time. Will utilize exercise and improved diet for symptom control. Code(s): K21.9 - Gastro-esophageal reflux disease without esophagitis Category: Medical Qualifiers: Esophagitis presence: esophagitis presence not specified Qualified Code(s): K21.9 - Gastro-esophageal reflux disease without esophagitis Plan: Reports that he used to get heartburn This has been managed with dietary modifications He does not get heartburn anymore Reinforced dietary restrictions Refrain from eating close to bedtime (5) Back pain: Code(s): M54.9 - Dorsalgia, unspecified Category: Medical Qualifiers: Back pain location: back pain in unspecified location Chronicity: chronic Back pain laterality: midline Qualified Code(s): M54.9 - Dorsalgia, unspecified; G89.29 - Other chronic pain Plan: 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 Lumbar CT on 08/17/2020. Shows slight grade 1 retrolisthesis of L4 on L5. Slight loss of intervertebral disc height at L5-S1. Slight bulging disc at L5-S1. No weakness in lower extremities. No radiculopathy on exam. Reports intermittent radiation of sensation down his legs. Manages with rest and OTC Tylenol (6) Seizure: Code(s): R56.9 - Unspecified convulsions Category: Medical Plan: Childhood seizures. He has not been on any medication in a while without any issues. Reports that his neurologist in [place] told him that his seizure activities are subtle and will not affect his driving so he is able to live a normal life. (7) Bilateral knee pain: Code(s): M25.561 - Pain in right knee; M25.562 - Pain in left knee Category: Medical Qualifiers: Chronicity: unspecified Qualified Code(s): M25.561 - Pain in right knee; M25.562 - Pain in left knee Plan: Patient this is as burning sensation in bilateral knees. He also reports that if he sits down for an extended period. He does get the burning sensation in that right upper thigh. Explained to the patient that this could be neuropathy or nerve impingement or for circulation. Either way, the patient is not looking for any treatment at this time. He attributed this condition to possibly wear and tear/arthritis. We will re-evaluate this situation upon the patient return in his 6 week. Considering of her in the patient gabapentin has a trial to see if this helps. Orders: Orders Complete Blood Count Auto Diff Today K58.9 - Irritable bowel syndrome, unspecified, M54.9 - Dorsalgia, unspecified, Z00.00 - Encounter for general adult medical examination without abnormal findings Comprehensive Schlater. Panel Fast Today K58.9 - Irritable bowel syndrome, unspecified, M54.9 - Dorsalgia, unspecified, Z00.00 - Encounter for general adult medical examination without abnormal findings Lipid Panel Today K58.9 - Irritable bowel syndrome, unspecified, M54.9 - Dorsalgia, unspecified, Z00.00 - Encounter for general adult medical examination without abnormal findings UA CC w/rflx Micro + Cult Today K58.9 - Irritable bowel syndrome, unspecified, M54.9 - Dorsalgia, unspecified, Z00.00 - Encounter for general adult medical examination without abnormal findings TSH reflex Free T4 Today K58.9 - Irritable bowel syndrome, unspecified, M54.9 - Dorsalgia, unspecified, Z00.00 - Encounter for general adult medical examination without abnormal findings Vitamin D 25-OH Total Today K58.9 - Irritable bowel syndrome, unspecified, M54.9 - Dorsalgia, unspecified, Z00.00 - Encounter for general adult medical examination without abnormal findings Referrals Speech and Hearing Referral H93.13 - Tinnitus, bilateral Medications: New sertraline 50 mg PO DAILY 30 tabs 3RF hydroxyzine HCl 50 mg PO BID PRN 60 tabs 2RF itching
== END 2024-10-21 16:42 | disposition home or self-care (01) ==
LOC: HO.HMCH 15:02
DX: K21.9 Gastro-esophageal reflux disease without esophagitis (principal); F41.9 Anxiety disorder, unspecified; R56.9 Unspecified convulsions; F32.A Depression, unspecified; K58.9 Irritable bowel syndrome, unspecified; H93.13 Tinnitus, bilateral; M54.9 Dorsalgia, unspecified; G89.29 Other chronic pain; M25.561 Pain in right knee; M25.562 Pain in left knee

== ENCOUNTER → 2024-10-21 15:01 | Outpatient (BNVA) | payer BC, SELFPAY | DX: K21.9 Gastro-esophageal reflux disease without esophagitis (principal); F32.A Depression, unspecified; M54.9 Dorsalgia, unspecified; F41.1 Generalized anxiety disorder; G89.29 Other chronic pain; K58.0 Irritable bowel syndrome with diarrhea; H93.13 Tinnitus, bilateral; R56.9 Unspecified convulsions | CPT/HCPCS: 96127; 99212 ==

== ENCOUNTER 2024-11-06 08:38 | Outpatient (REF) | payer BC, SELFPAY ==
[2024-11-06 09:04] LABS: MANUAL DIFF FLAG NO
[2024-11-06 09:25] LABS: Hematocrit 44.0 % (42.0-52.0); Hemoglobin 14.8 g/dl (14.0-18.0); Imm Gran Abs Auto 0.04 X10*3/uL (0.00-0.03); Imm Gran Pct Auto 0.5 % (0.0-0.4); Lymphocytes Absolute Auto 2.8 X10*3/uL (1.2-4.9); Mean Corpuscular HGB Conc 33.6 g/dl (31.0-36.0); Mean Corpuscular Hemoglobin 29.7 pg (27.0-33.0); Mean Corpuscular Volume 88.4 fL (80.0-98.0); NRBC Abs Auto 0.000 X10*3/uL (0.0-0.012); NRBC Pct Auto 0.0 /100WBC (0.0-0.2); Platelet Count 221 X10*3/uL (160-400); Red Blood Count 4.98 X10*6/uL (4.60-5.80); White Blood Count 8.4 X10*3/uL (4.8-10.8)
[2024-11-06 10:19] LABS: Alanine Aminotransferase 54 U/L (0-40); Albumin Level 4.6 g/dL (3.5-5.0); Alkaline Phosphatase 70 U/L (39-117); Anion Gap 11 (12-20); Aspartate Amino Transferase 33 U/L (5-37); Blood Urea Nitrogen 11 mg/dL (9-16); Calcium 9.3 mg/dL (8.4-10.2); Carbon Dioxide 27 mmol/L (22-29); Chloride 106 mmol/L (96-108); Cholesterol 185 mg/dL (<200); Estimated Glomerular Filt Rate > 60; HDL Cholesterol 57 mg/dL (>40); Potassium 4.3 mmol/L (3.3-5.1); Sodium 140 mmol/L (135-145); Total Protein 7.2 g/dL (6.5-8.0); Triglycerides 53 mg/dL (<150)
[2024-11-06 12:00] LABS: Appearance Urine Turbid; Glucose Urine UA Negative (Negative); PH 6.5 (5.0-9.0); Specific Gravity - Urine 1.020 (1.005-1.025)
== END 2024-11-06 08:39 | disposition home or self-care (01) ==
LOC: HO.LAB 08:38
DX: Z00.00 Encounter for general adult medical examination without abnormal findings (principal); K58.9 Irritable bowel syndrome, unspecified; M54.9 Dorsalgia, unspecified
CPT/HCPCS: 36415; 80053; 80061; 81003; 82306; 84443; 85025

== ENCOUNTER 2025-01-18 14:48 | Outpatient (AMB) | payer BC, SELFPAY ==
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
[2025-01-18 15:01] VITALS: BP 146/78; PULSE 81; RESP 18; TEMP 36.3; O2SAT 96; BMI 40.8
== END 2025-01-18 15:51 | disposition home or self-care (01) ==
LOC: HO.HMCH 14:48
DX: Z00.00 Encounter for general adult medical examination without abnormal findings (principal); F41.9 Anxiety disorder, unspecified; F32.A Depression, unspecified; K58.9 Irritable bowel syndrome, unspecified; H93.13 Tinnitus, bilateral; K21.9 Gastro-esophageal reflux disease without esophagitis; M54.9 Dorsalgia, unspecified; G89.29 Other chronic pain; R56.9 Unspecified convulsions; M25.561 Pain in right knee; M25.562 Pain in left knee; R74.8 Abnormal levels of other serum enzymes; E78.5 Hyperlipidemia, unspecified

== ENCOUNTER 2025-01-24 10:35 | Outpatient (REF) | payer BC, SELFPAY ==
--- NOTE | ~2025-01-24 | XR_ITS ---
EXAMINATION: XR LUMBAR SPINE 2-3 VIEWS HISTORY: M54.9 - Dorsalgia, unspecified COMPARISON: Comparison is made with the prior examination dated 08/17/2020. FINDINGS: AP, lateral, and coned down views of the lumbar spine are submitted. Osseous mineralization is normal. Five nonrib-bearing lumbar vertebral bodies are identified, maintaining normal height without evidence of fracture. There is spondylolysis at L5 with slight spondylolisthesis of L5 on S1. There is mild to moderate disc space narrowing at this level. The remaining intervertebral disc spaces are maintained. The visualized paraspinal soft tissues are unremarkable. XR/XR lumbar spine 2-3V IMPRESSION: Spondylolysis of L5 with slight spondylolisthesis of L5 on S1 and mild to moderate degenerative disc disease. Electronically signed by: Bladimir Mcintosh MD 01/24/2025 11:01 AM EDT
--- NOTE | ~2025-01-24 | US_ITS ---
EXAMINATION: US ABDOMEN LIMITED HISTORY: R74.8 - Abnormal levels of other serum enzymes TECHNIQUE: Real-time grayscale ultrasound imaging of the right upper quadrant was performed and images were reviewed. COMPARISON: There are no prior studies available for comparison. FINDINGS: Liver: The right lobe of the liver measures 17.0 cm in size. The left lobe of the liver measures 11.9 cm in size. The liver demonstrates increased echotexture, consistent with steatosis. There is a 2.4 x 2.1 x 1.7 cm echogenic mass in the right lobe which may represent a hemangioma. No intrahepatic biliary ductal dilatation is identified. There is normal hepatopedal flow in the portal vein. Gallbladder and biliary tree: There is cholelithiasis. There is no gallbladder wall thickening or pericholecystic fluid. There is no sonographic Strauss sign. The common bile duct is normal in caliber measuring 3 mm. Right Kidney: The right kidney measures 11.2 cm in length. The right kidney is unremarkable, without evidence of masses, hydronephrosis, or calculi. Pancreas: The pancreas is obscured by bowel gas. Abdominal aorta and inferior vena cava: The visualized portions of the abdominal aorta and inferior vena cava are normal in caliber. There is no free fluid in the right upper quadrant. US/US abdomen limited IMPRESSION: 1. Hepatic steatosis. 2.4 x 2.1 x 1.7 cm echogenic mass in the right lobe of the liver which may represent a hemangioma. Liver protocol MRI should be considered. 2. Cholelithiasis without evidence of acute cholecystitis. Electronically signed by: Bladimir Mcintosh MD 01/24/2025 11:27 AM EDT
--- NOTE | ~2025-01-24 | XR_ITS ---
EXAMINATION: XR THORACIC SPINE CLINICAL INFORMATION: M54.9 - Dorsalgia, unspecified COMPARISON: None available. TECHNIQUE: 3 views of the thoracic spine were obtained. FINDINGS: No scoliosis. Mildly exaggerated thoracic kyphosis. No malalignment or subluxation. No fracture, compression deformity, or suspicious bone lesion. Very mild disc degeneration in the mid to inferior spinal levels. Disc spaces otherwise grossly maintained. Facets normally aligned. Imaged mediastinal contents, lungs, and soft tissues appear normal. XR/XR thoracic spine 3V IMPRESSION: 1. No acute findings of the thoracic spine. 2. Minimal disc degeneration of the mid and lower thoracic levels. Electronically signed by: Gabe Mosqueda MD 01/24/2025 11:02 AM EDT
== END 2025-01-24 10:36 | disposition home or self-care (01) ==
LOC: HO.US 10:35
DX: R74.8 Abnormal levels of other serum enzymes (principal); G89.29 Other chronic pain; M54.9 Dorsalgia, unspecified
CPT/HCPCS: 72072; 72100; 76705

== ENCOUNTER → 2025-01-24 10:39 | Outpatient (BNV) | payer BC, SELFPAY | PROVIDERS: Visit Provider Radiology Diagnostic Radiology | DX: K76.0 Fatty (change of) liver, not elsewhere classified (principal); K80.20 Calculus of gallbladder without cholecystitis without obstruction; M43.16 Spondylolisthesis, lumbar region; M51.34 Other intervertebral disc degeneration, thoracic region | CPT/HCPCS: 72072; 72100; 76705 ==